=== PATIENT | male | born 1960 | race Caucasian/White ===

== ENCOUNTER 2017-08-24 23:52 | Emergency (ER) | payer BC ==
[2017-08-25] MEDS ORDERED: Albuterol/Ipratropium 3.0-0.5 MG/3 ML Neb Soln NEB ONE (00:14)
[2017-08-25] MEDS ORDERED: Sulfamethoxazole/Trimethoprim 800-160 MG Tab PO ONE (00:14)
--- NOTE | 2017-08-25 00:16 | EDM.PDOC ---
ED HPI GENERAL MEDICAL PROBLEM - General Stated Complaint: COUGH Time Seen by Provider: 08/25/17 00:00 Source of Information: Reports: Patient History Limitations: Reports: No Limitations - History of Present Illness INITIAL COMMENTS - FREE TEXT/NARRATIVE: 56 y.o.w.m came to the ed with his SO due to a dry cough, which started yesterday. No F/C/N/V or any other acute medical issues. Pt quit tobacco use 35 years ago. BP 153/102 Temp 36.8 RR 18 Pulse ox 95% on RA Onset Date: 08/24/17 Onset Time: 08:00 Duration: Hour(s):, Intermittent Location: Reports: Chest Quality: Reports: Ache, Burning Severity: Mild Improves with: Reports: Rest Worsens with: Reports: Movement Context: Reports: Other (nonproductive cough) Associated Symptoms: Reports: No Other Symptoms - Related Data Allergies Allergy/AdvReac Type Severity Reaction Status Date / Time No Known Allergies Allergy Verified 08/25/17 00:40 Home Meds: Home Meds Lovastatin 20 mg PO BEDTIME 07/11/13 [History] Sildenafil [Viagra] 1 tab PO DAILY PRN 07/11/13 [History] metFORMIN [Glucophage] 1,000 mg PO BIDM 07/11/13 [History] Aspirin [Adult Low Dose Aspirin EC] 81 mg PO DAILY 05/13/14 [History] Lisinopril/Hydrochlorothiazide [Lisinopril-Hctz 20-12.5 mg Tab] 1 tab PO DAILY 05/13/14 [History] Ciprofloxacin HCl [Cipro] 500 mg PO BID #20 tablet 08/25/17 [Rx] Codeine/guaiFENesin [guaiFENesin-Codeine Syrup] 5 ml PO BEDTIME #10 cup [Rx] Social & Family History - Tobacco Use Smoking Status *Q: Former Smoker Years of Tobacco use: 10 Used Tobacco, but Quit: Yes - Alcohol Use Days Per Week of Alcohol Use: 0 - Recreational Drug Use Recreational Drug Use: No ED ROS GENERAL - Review of Systems Review Of Systems: See Below Constitutional: Reports: No Symptoms HEENT: Reports: No Symptoms Respiratory: Reports: Cough Cardiovascular: Reports: No Symptoms Endocrine: Reports: No Symptoms GI/Abdominal: Reports: No Symptoms : Reports: No Symptoms Musculoskeletal: Reports: No Symptoms Skin: Reports: No Symptoms Neurological: Reports: No Symptoms Psychiatric: Reports: No Symptoms Hematologic/Lymphatic: Reports: No Symptoms Immunologic: Reports: No Symptoms ED EXAM, GENERAL - Physical Exam Exam: See Below Exam Limited By: No Limitations General Appearance: Alert, WD/WN, Mild Distress Eye Exam: Bilateral Eye: Normal Inspection Ears: Normal External Exam Ear Exam: Bilateral Ear: Auricle Normal Nose: Normal Inspection, Normal Mucosa Throat/Mouth: Normal Inspection, Normal Lips Head: Atraumatic, Normocephalic Neck: Normal Inspection, Supple, Non-Tender, Full Range of Motion Respiratory/Chest: No Respiratory Distress, Lungs Clear, Normal Breath Sounds, No Accessory Muscle Use, Chest Non-Tender Cardiovascular: Normal Peripheral Pulses, Regular Rate, Rhythm, No Edema, No Gallop, No JVD, No Murmur, No Rub GI/Abdominal: Normal Bowel Sounds, Soft, Non-Tender (Male) Exam: Deferred Rectal (Males) Exam: Deferred Back Exam: Normal Inspection, Full Range of Motion Extremities: Normal Inspection, Normal Range of Motion, Non-Tender, No Pedal Edema Neurological: Alert, Oriented, CN II-XII Intact, Normal Cognition, Normal Gait Psychiatric: Normal Affect, Normal Mood Skin Exam: Warm, Dry, Intact, Normal Color, No Rash Lymphatic: No Adenopathy Course - Vital Signs Text/Narrative:: 56 y.o.w.m came to the ed with his SO due to a dry cough, which started yesterday. No F/C/N/V or any other acute medical issues. Pt quit tobacco use 35 years ago. BP 153/102 Temp 36.8 RR 18 Pulse ox 95% on RA PE: Upper resp infection, non prod. cough Imaging: CXR NAD Labs: Not indicated Impression: Upper resp infection, non prod. cough Tx: Duoneb, Ciproand Codeine/Phenergen Reexam: Improved BP 152/82 on D/C Plan: D/C with instructions Last Recorded V/S: Last Vital Signs Temp 36.8 C 08/25/17 00:05 Pulse 106 H 08/25/17 00:05 Resp 20 08/25/17 00:05 BP 153/102 H 08/25/17 00:05 Pulse Ox 96 08/25/17 00:05 - Orders/Labs/Meds Orders: Active Orders 24 hr Category Date Time Status RT Aerosol Therapy [RC] ASDIRECTED Care 08/25/17 00:15 Active Chest 2V [CR] Stat Exams 08/25/17 00:14 Taken Meds: Medications Discontinued Medications Generic Name Dose Route Start Last Admin Trade Name Price PRN Reason Stop Dose Admin Albuterol/Ipratropium 3 ml 08/25/17 00:14 08/25/17 00:24 Duoneb 3.0-0.5 Mg/3 Ml NEB 08/25/17 00:15 3 ml ONETIME ONE Administration Ciprofloxacin 500 mg 08/25/17 00:18 08/25/17 00:24 Ciprofloxacin Hcl PO 08/25/17 00:19 500 mg ONETIME ONE Administration Guaifenesin/Codeine Phosphate 5 ml 08/25/17 00:41 08/25/17 00:53 Robitussin Ac PO 08/25/17 00:42 5 ml ONETIME ONE Administration Trimethoprim/Sulfamethoxazole 1 tab 08/25/17 00:14 Septra Ds PO 08/25/17 00:15 ONETIME ONE Departure - Departure Time of Disposition: 00:44 Disposition: Home, Self-Care 01 Condition: Good Clinical Impression: Upper respiratory infection, acute - Discharge Information Prescriptions: Ciprofloxacin HCl [Cipro] 500 mg PO BID #20 tablet Codeine/guaiFENesin [guaiFENesin-Codeine Syrup] 5 ml PO BEDTIME #10 cup Referrals: Ashish Blackburn MD [Primary Care Provider] - Forms: ED Department Discharge Additional Instructions: Please make sure your room is moist, please take the Abx and Codine as recommended, please f/u, come back if your symptoms get worse acutely - My Orders Last 24 Hours: My Active Orders 08/25/17 00:14 Chest 2V [CR] Stat 08/25/17 00:15 RT Aerosol Therapy [RC] ASDIRECTED - Assessment/Plan Last 24 Hours: My Active Orders 08/25/17 00:14 Chest 2V [CR] Stat 08/25/17 00:15 RT Aerosol Therapy [RC] ASDIRECTED
[2017-08-25] MEDS ORDERED: Ciprofloxacin 500 MG Tab PO ONE (00:18)
[2017-08-25] MEDS ORDERED: Codeine/guaiFENesin 100-10 MG/5 ML Syrup 5 ML Cup PO ONE (00:41)
[2017-08-25 01:05] VITALS: BP 151/82
--- NOTE | 2017-08-28 12:17 | CR ---
INDICATION: Cough. CHEST: PA and lateral views of the chest 08/25/2017 were compared with 2014 and 07/11/2013, revealing bilateral nipple shadows. The heart is normal in size and shape. The aorta is slightly tortuous, with some minimal calcification in the arch. Slightly heavy markings in the lower lung trujillo are essentially unchanged from the previous study with no definite active infiltrate or effusion. There are some flowing hyperostotic changes present in the spine, which could be on the basis of mild or early DISH and should be correlated clinically. IMPRESSION: No acute process. Stable chest. MTDD
== END 2017-08-25 01:05 | disposition home or self-care (01) ==
LOC: FB.ED 23:52
DX: J06.9 Acute upper respiratory infection, unspecified (principal); Z87.891 Personal history of nicotine dependence; Z79.899 Other long term (current) drug therapy; Z79.82 Long term (current) use of aspirin
CPT/HCPCS: 71020; 99283; A9270; J7620; 94640

== ENCOUNTER 2019-03-21 20:15 | Observation (INO) | payer BC ==
[2019-03-21] MEDS ORDERED: Sodium Chloride 0.9% 10 ML Syringe FLUSH PRN (20:45)
--- NOTE | 2019-03-21 20:45 | EDM.PDOC ---
ED HPI GENERAL MEDICAL PROBLEM - General Stated Complaint: ABD PAIN Time Seen by Provider: 03/21/19 20:25 Source of Information: Reports: Patient History Limitations: Reports: No Limitations - History of Present Illness INITIAL COMMENTS - FREE TEXT/NARRATIVE: 58-year-old male who states at approximately 3 PM begin to have pain in his left upper and mid abdomen that was a dull and aching pain and it gradually got worse. He was just sitting and doing some work at the time. He feels that the pain is worse with palpation and with movement and if he hunches over the pain is somewhat improved. He rates the pain as a 6/10. He appears to be quite uncomfortable. He's had no nausea or vomiting. He did have a normal bowel movement today. No diarrhea. He ate normally today. He is had no dysuria or hematuria. No fevers. But he has had sweats since he has been at home. The pain just simply won't go away. He has had no trauma to the area. He has no back pain. There is no radiation of the pain. Eating and drinking did not seem to make his pain worse. He has no leg pain or leg swelling. There are no other associated signs or symptoms. There are no other modifying factors. Onset: Today (3 PM) Duration: Getting Worse Location: Reports: Abdomen Quality: Reports: Ache, Dull Severity: Moderate Improves with: Reports: Other (Sitting hunched over) Worsens with: Reports: Other (Palpation), Movement Context: Reports: Other (As above) Associated Symptoms: Reports: No Other Symptoms Treatments EQUAL OPPORTUNITY DIRECTOR: Reports: Other (see below) (Nothing) ruq abdominal pain Pain Score (Numeric/FACES): 6 - Related Data Allergies Allergy/AdvReac Type Severity Reaction Status Date / Time No Known Allergies Allergy Verified 03/22/19 00:01 Home Meds: Home Meds Lovastatin 20 mg PO BEDTIME 07/11/13 [History] Sildenafil [Viagra] 1 tab PO DAILY PRN 07/11/13 [History] metFORMIN [Glucophage] 1,000 mg PO BIDM 07/11/13 [History] Aspirin [Adult Low Dose Aspirin EC] 81 mg PO DAILY 05/13/14 [History] Lisinopril/Hydrochlorothiazide [Lisinopril-Hctz 20-12.5 mg Tab] 1 tab PO DAILY 05/13/14 [History] Naproxen Sodium [Aleve] 220 mg PO ASDIRECTED PRN 03/22/19 [History] Past Medical History Cardiovascular History: Reports: High Cholesterol, Hypertension Respiratory History: Reports: Pneumonia, Recurrent Gastrointestinal History: Reports: PUD Musculoskeletal History: Reports: Fracture, Other (See Below) Other Musculoskeletal History: Pelvic fracture at age 14. Endocrine/Metabolic History: Reports: Diabetes, Type II Hematologic History: Reports: Anemia, Other (See Below) Other Hematologic History: Episode of anemia about 4 years ago, etiology undetermined. Resolved with short term Iron medication. 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 Denies: Chest Pain Endocrine: Reports: No Symptoms GI/Abdominal: Reports: Abdominal Pain. Denies: Diarrhea, Nausea, Vomiting : Reports: No Symptoms Musculoskeletal: Reports: No Symptoms Skin: Reports: Diaphoresis (Off-and-on) Neurological: Reports: No Symptoms Hematologic/Lymphatic: Reports: No Symptoms Immunologic: Reports: No Symptoms ED EXAM, GI/ABD - Physical Exam Exam: See Below Exam Limited By: No Limitations General Appearance: Alert, WD/WN, Moderate Distress Eyes: Bilateral: Normal Appearance, EOMI Ears: Normal External Exam Nose: Normal Inspection, Normal Mucosa, No Blood Throat/Mouth: Normal Voice, No Airway Compromise, Other (Dry mucous membranes) Neck: Normal Inspection, Supple, Non-Tender, Full Range of Motion Respiratory/Chest: No Respiratory Distress, Lungs Clear, Normal Breath Sounds, No Accessory Muscle Use, Chest Non-Tender Cardiovascular: Normal Peripheral Pulses, Regular Rate, Rhythm, No JVD GI/Abdominal Exam: Normal Bowel Sounds, Soft, No Mass, Distended (Seems somewhat distended.), Tender (In left upper quadrant and epigastrium.) Back Exam: Normal Inspection Extremities: Normal Inspection, Normal Range of Motion, Non-Tender, No Pedal Edema, Normal Capillary Refill Neurological: Alert, Oriented, CN II-XII Intact, Normal Cognition, No Motor/ Sensory Deficits Skin Exam: Warm, Dry, Intact, Normal Color, No Rash Course - Vital Signs Last Recorded V/S: Last Vital Signs Temp 36.4 C 03/21/19 20:15 Pulse 64 03/21/19 20:15 Resp 17 03/21/19 20:15 BP 165/94 H 03/21/19 20:15 Pulse Ox 98 03/21/19 20:15 - Orders/Labs/Meds Orders: Active Orders 24 hr Category Date Time Status Abdomen Pelvis w Cont [CT] Stat Exams 03/21/19 21:46 Taken Sodium Chloride 0.9% [Saline Flush] Med 03/21/19 20:45 Active 10 ml FLUSH ASDIRECTED PRN Peripheral IV Insertion Adult [OM.PC] Routine Oth 03/21/19 20:45 Ordered Medication Orders Cefoxitin Sodium (Mefoxin) 2 gm IVPUSH Q6H ERLIN Last Admin: 03/22/19 01:03 Dose: 2 gm Sodium Chloride (Normal Saline) 1,000 mls @ 125 mls/hr IV ASDIRECTED ELRIN Morphine Sulfate (Morphine) 2 mg IVPUSH Q2H PRN PRN Reason: Pain (severe 7-10) Ondansetron HCl (Zofran) 4 mg IV Q6H PRN PRN Reason: Nausea/Vomiting Sodium Chloride (Saline Flush) 10 ml FLUSH ASDIRECTED PRN PRN Reason: Keep Vein Open Last Admin: 03/21/19 21:40 Dose: 10 ml Labs: Laboratory Tests 03/21/19 03/21/19 03/21/19 Range/Units 21:05 21:05 21:05 WBC 13.5 H (4.5-12.0) X10-3/uL RBC 5.73 (4.30-5.75) x10(6)uL Hgb 16.5 (13.5-17.8) g/dL Hct 48.5 (30.0-51.3) % MCV 84.6 (80-96) fL MCH 28.8 (27.7-33.6) pg MCHC 34.0 (32.2-35.4) g/dL RDW 13.8 (11.5-15.5) % Plt Count 264 (125-369) X10(3)uL MPV 7.9 (7.4-10.4) fL Add Manual Diff Yes Neutrophils % (Manual) 76 (46-82) % Band Neutrophils % 5 (0-6) % Lymphocytes % (Manual) 12 L (13-37) % Monocytes % (Manual) 5 (4-12) % Eosinophils % (Manual) 2 (0-5) % Sodium 137 (135-145) mmol/L Potassium 4.4 (3.5-5.3) mmol/L Chloride 104 (100-110) mmol/L Carbon Dioxide 23 (21-32) mmol/L BUN 24 H (7-18) mg/dL Creatinine 1.1 (0.70-1.30) mg/dL Est Cr Clr Drug Dosing TNP Estimated GFR (MDRD) > 60 (>60) BUN/Creatinine Ratio 21.8 H (9-20) Glucose 161 H (80-116) mg/dL Calcium 9.9 (8.6-10.2) mg/dL Total Bilirubin 0.5 (0.1-1.3) mg/dL AST 26 H (5-25) IU/L ALT 64 H (12-36) U/L Alkaline Phosphatase 92 (56-112) IU/L C-Reactive Protein < 0.2 L (0.5-0.9) mg/dL Total Protein 7.6 (6.0-8.0) g/dL Albumin 4.1 (3.5-5.2) g/dL Globulin 3.5 g/dL Albumin/Globulin Ratio 1.2 Amylase 64 (25-115) U/L Urine Color (YELLOW) Urine Appearance (CLEAR) Urine pH (5.0-6.5) Ur Specific [place] (1.010-1.025) Urine Protein (NEGATIVE) mg/dL Urine Glucose (UA) (NORMAL) mg/dL Urine Ketones (NEGATIVE) mg/dL Urine Occult Blood (NEGATIVE) Urine Nitrite (NEGATIVE) Urine Bilirubin (NEGATIVE) Urine Urobilinogen (NEGATIVE) mg/dL Ur Leukocyte Esterase (NEGATIVE) Urine RBC (0-5) Urine WBC (0-5) Ur Squamous Epith Cells (NS,R,O) Urine Bacteria (NS) 07/19/19 Range/Units 23:17 WBC (4.5-12.0) X10-3/uL RBC (4.30-5.75) x10(6)uL Hgb (13.5-17.8) g/dL Hct (30.0-51.3) % MCV (80-96) fL MCH (27.7-33.6) pg MCHC (32.2-35.4) g/dL RDW (11.5-15.5) % Plt Count (125-369) X10(3)uL MPV (7.4-10.4) fL Add Manual Diff Neutrophils % (Manual) (46-82) % Band Neutrophils % (0-6) % Lymphocytes % (Manual) (13-37) % Monocytes % (Manual) (4-12) % Eosinophils % (Manual) (0-5) % Sodium (135-145) mmol/L Potassium (3.5-5.3) mmol/L Chloride (100-110) mmol/L Carbon Dioxide (21-32) mmol/L BUN (7-18) mg/dL Creatinine (0.70-1.30) mg/dL Est Cr Clr Drug Dosing Estimated GFR (MDRD) (>60) BUN/Creatinine Ratio (9-20) Glucose (80-116) mg/dL Calcium (8.6-10.2) mg/dL Total Bilirubin (0.1-1.3) mg/dL AST (5-25) IU/L ALT (12-36) U/L Alkaline Phosphatase (56-112) IU/L C-Reactive Protein (0.5-0.9) mg/dL Total Protein (6.0-8.0) g/dL Albumin (3.5-5.2) g/dL Globulin g/dL Albumin/Globulin Ratio Amylase (25-115) U/L Urine Color Yellow (YELLOW) Urine Appearance Clear (CLEAR) Urine pH 5.0 (5.0-6.5) Ur Specific [place] 1.020 (1.010-1.025) Urine Protein Negative (NEGATIVE) mg/dL Urine Glucose (UA) Normal (NORMAL) mg/dL Urine Ketones Negative (NEGATIVE) mg/dL Urine Occult Blood Negative (NEGATIVE) Urine Nitrite Negative (NEGATIVE) Urine Bilirubin Negative (NEGATIVE) Urine Urobilinogen Normal (NEGATIVE) mg/dL Ur Leukocyte Esterase Negative (NEGATIVE) Urine RBC 0-5 (0-5) Urine WBC 0-5 (0-5) Ur Squamous Epith Cells Occasional (NS,R,O) Urine Bacteria Rare H (NS) Meds: Medications Generic Name Dose Route Start Last Admin Trade Name Freq PRN Reason Stop Dose Admin Cefoxitin Sodium 2 gm 03/22/19 01:00 03/22/19 01:03 Mefoxin IVPUSH 2 gm Q6H ERLIN Administration Sodium Chloride 1,000 mls @ 125 mls/hr 03/22/19 01:00 Normal Saline IV ASDIRECTED ERLIN Morphine Sulfate 2 mg 03/22/19 00:57 Morphine IVPUSH Q2H PRN Pain (severe 7-10) Ondansetron HCl 4 mg 03/22/19 00:57 Zofran IV Q6H PRN Nausea/Vomiting Sodium Chloride 10 ml 03/21/19 20:45 03/21/19 21:40 Saline Flush FLUSH 10 ml ASDIRECTED PRN Administration Keep Vein Open Discontinued Medications Generic Name Dose Route Start Last Admin Trade Name Freq PRN Reason Stop Dose Admin Sodium Chloride 1,000 mls @ 999 mls/hr 03/21/19 20:46 03/21/19 21:43 Normal Saline IV 03/21/19 21:46 999 mls/hr .BOLUS ONE Administration Iopamidol 100 ml 03/21/19 23:17 03/21/19 23:33 Isovue-370 (76%) IV 03/21/19 23:18 100 ml . DIRECTED ONE Administration Morphine Sulfate 4 mg 03/21/19 20:46 03/21/19 21:47 Morphine IVPUSH 03/21/19 20:47 4 mg ONETIME ONE Administration Ondansetron HCl 4 mg 03/21/19 20:46 03/21/19 21:46 Zofran IVPUSH 03/21/19 20:47 4 mg ONETIME ONE Administration - Radiology Interpretation Free Text/Narrative:: CT scan of abdomen and pelvis showed cholelithiasis which was already known but no evidence of cholecystitis. There was a new 11.3 x 4.5 cm fluid and air filled structure arising from a loop of small bowel in the right abdomen that was felt to be a diverticulum. There is also a short segment of small bowel that had circumferential wall thickening it was adjacent to this and a 1.4 cm V- shaped hyperdensity at the junction between these 2 that could represent a foreign body. There was some stranding around the diverticulum concerning for early inflammation. - Re-Assessments/Exams Free Text/Narrative Re-Assessment/Exam: 03/21/19 22:30: Patient's pain is down to a 1-2/10. It is still present with palpation. He is, however, feeling much improved. He does have an elevation in his white blood cell count and because of the nature of his pain I will send him for CT of his abdomen and pelvis with IV contrast. 03/22/19 00:48: Patient's abdominal exam is really fairly not impressive at this point. He does have some pain with palpation over his right upper/mid abdomen. There is no rebound. Bowel sounds are present. The patient has remained vitally stable. The CT of the abdomen and pelvis is concerning for a small bowel diverticulum with inflammation/infection and an area that could represent a small foreign body. I discussed the patient's case with Dr. Negrete and the plan will be to admit the patient, keep patient nothing by mouth and place patient on Mefoxin and Dr. Negrete will see the patient in the morning and review the patient's CT scan of the time. I had discussed this with the patient and his prior to discussing the patient with Dr. Negrete and they would be agreeable to the plans for admission. Departure - Departure Time of Disposition: 01:00 Disposition: Refer to Observation Condition: Fair (Stable) Clinical Impression: Diverticulitis small intestine Qualifiers: Diverticulitis bleeding: without bleeding Diverticulitis complication: without perforation or abscess Qualified Code(s): K57.12 - Diverticulitis of small intestine without perforation or abscess without bleeding - Discharge Information - My Orders Last 24 Hours: My Active Orders 03/21/19 20:45 Sodium Chloride 0.9% [Saline Flush] 10 ml FLUSH ASDIRECTED PRN Peripheral IV Insertion Adult [OM.PC] Routine 03/21/19 21:46 Abdomen Pelvis w Cont [CT] Stat - Assessment/Plan Last 24 Hours: My Active Orders 03/21/19 20:45 Sodium Chloride 0.9% [Saline Flush] 10 ml FLUSH ASDIRECTED PRN Peripheral IV Insertion Adult [OM.PC] Routine 03/21/19 21:46 Abdomen Pelvis w Cont [CT] Stat
[2019-03-21] MEDS ORDERED: Morphine 4 MG/ML Syringe IVPUSH ONE (20:46)
[2019-03-21] MEDS ORDERED: Ondansetron 4 MG/2 ML SDV IVPUSH ONE (20:46)
[2019-03-21] MEDS ORDERED: Sodium Chloride 0.9% 1,000 ML IV ONE (20:46)
[2019-03-21] MEDS ORDERED: Iopamidol 755 Mg/ML 100 ML Bottle IV ONE (23:17)
[2019-03-22] MEDS ORDERED: Ondansetron 4 MG/2 ML SDV IV PRN (00:57)
[2019-03-22] MEDS ORDERED: Morphine 2 MG/ML Syringe IVPUSH PRN (00:57)
[2019-03-22] MEDS ORDERED: Sodium Chloride 0.9% 1,000 ML IV SCH (01:00)
[2019-03-22] MEDS: cefOXitin 2 GM Vial IVPUSH SCH ×3 (01:03→13:36)
[2019-03-22 08:17] VITALS: PULSE 89
--- NOTE | 2019-03-22 10:00 | PCM.HP ---
H&P History of Present Illness - General Date of Service: 03/22/19 Admit Problem/Dx: Admission Diagnosis/Problem Admission Diagnosis/Problem Diverticulitis of gastrointestinal tract - History of Present Illness Initial Comments - Free Text/Narative: 58 yo wm who presented to the ED last pm with a complaint of L sided abd pain. This started at 1500 hrs and would not go away. He denied any fever, chills, constipation. Subsequent angel revealed that he had slightly elevated wbc, crp was negative. On CT scan there was a quesion of a diverticulum with some inflammation. There was a question of a retained food particle as well in the area. He was admitted and place on antibiotics. This morning he is feeling better. ruq abdominal pain Pain Score (Numeric/FACES): 6 - Related Data Allergies/Adverse Reactions: Allergies Allergy/AdvReac Type Severity Reaction Status Date / Time No Known Allergies Allergy Verified 03/22/19 00:01 Home Medications: Home Meds Lovastatin 20 mg PO BEDTIME 07/11/13 [History] Sildenafil [Viagra] 1 tab PO DAILY PRN 07/11/13 [History] metFORMIN [Glucophage] 1,000 mg PO BIDM 07/11/13 [History] Aspirin [Adult Low Dose Aspirin EC] 81 mg PO DAILY 05/13/14 [History] Lisinopril/Hydrochlorothiazide [Lisinopril-Hctz 20-12.5 mg Tab] 1 tab PO DAILY 05/13/14 [History] Naproxen Sodium [Aleve] 220 mg PO ASDIRECTED PRN 03/22/19 [History] Past Medical History HEENT History: Reports: Other (See Below) Other HEENT History: Wears glasses. Cardiovascular History: Reports: High Cholesterol, Hypertension Other Cardiovascular History: Takes cardiac meds. Respiratory History: Reports: Pneumonia, Recurrent, Other (See Below) Other Respiratory History: Possible sleep apnea. Gastrointestinal History: Reports: PUD Musculoskeletal History: Reports: Fracture, Other (See Below) Other Musculoskeletal History: Pelvic fracture at age 14. Endocrine/Metabolic History: Reports: Diabetes, Type II Other Endocrine/Metabolic History: Takes Metformin. Hematologic History: Reports: Anemia, Other (See Below) Other Hematologic History: Episode of anemia about 4 years ago, etiology undetermined. Resolved with short term iron medication. 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 No: Mild Distress, Moderate Distress Lungs: Clear to Auscultation, Normal Respiratory Effort Cardiovascular: Regular Rate, Regular Rhythm GI/Abdominal Exam: Normal Bowel Sounds, Soft, Non-Tender, No Distention, No Mass - Patient Data Lab Results Last 24 hrs: Laboratory Results - last 24 hr 03/21/19 03/21/19 03/21/19 Range/Units 21:05 21:05 21:05 WBC 13.5 H (4.5-12.0) X10-3/uL RBC 5.73 (4.30-5.75) x10(6)uL Hgb 16.5 (13.5-17.8) g/dL Hct 48.5 (30.0-51.3) % MCV 84.6 (80-96) fL MCH 28.8 (27.7-33.6) pg MCHC 34.0 (32.2-35.4) g/dL RDW 13.8 (11.5-15.5) % Plt Count 264 (125-369) X10(3)uL MPV 7.9 (7.4-10.4) fL Add Manual Diff Yes Neutrophils % (Manual) 76 (46-82) % Band Neutrophils % 5 (0-6) % Lymphocytes % (Manual) 12 L (13-37) % Monocytes % (Manual) 5 (4-12) % Eosinophils % (Manual) 2 (0-5) % Sodium 137 (135-145) mmol/L Potassium 4.4 (3.5-5.3) mmol/L Chloride 104 (100-110) mmol/L Carbon Dioxide 23 (21-32) mmol/L BUN 24 H (7-18) mg/dL Creatinine 1.1 (0.70-1.30) mg/dL Est Cr Clr Drug Dosing TNP Estimated GFR (MDRD) > 60 (>60) BUN/Creatinine Ratio 21.8 H (9-20) Glucose 161 H (80-116) mg/dL Calcium 9.9 (8.6-10.2) mg/dL Total Bilirubin 0.5 (0.1-1.3) mg/dL AST 26 H (5-25) IU/L ALT 64 H (12-36) U/L Alkaline Phosphatase 92 (56-112) IU/L C-Reactive Protein < 0.2 L (0.5-0.9) mg/dL Total Protein 7.6 (6.0-8.0) g/dL Albumin 4.1 (3.5-5.2) g/dL Globulin 3.5 g/dL Albumin/Globulin Ratio 1.2 Amylase 64 (25-115) U/L Urine Color (YELLOW) Urine Appearance (CLEAR) Urine pH (5.0-6.5) Ur Specific [place] (1.010-1.025) Urine Protein (NEGATIVE) mg/dL Urine Glucose (UA) (NORMAL) mg/dL Urine Ketones (NEGATIVE) mg/dL Urine Occult Blood (NEGATIVE) Urine Nitrite (NEGATIVE) Urine Bilirubin (NEGATIVE) Urine Urobilinogen (NEGATIVE) mg/dL Ur Leukocyte Esterase (NEGATIVE) Urine RBC (0-5) Urine WBC (0-5) Ur Squamous Epith Cells (NS,R,O) Urine Bacteria (NS) 03/21/19 Range/Units 23:17 WBC (4.5-12.0) X10-3/uL RBC (4.30-5.75) x10(6)uL Hgb (13.5-17.8) g/dL Hct (30.0-51.3) % MCV (80-96) fL MCH (27.7-33.6) pg MCHC (32.2-35.4) g/dL RDW (11.5-15.5) % Plt Count (125-369) X10(3)uL MPV (7.4-10.4) fL Add Manual Diff Neutrophils % (Manual) (46-82) % Band Neutrophils % (0-6) % Lymphocytes % (Manual) (13-37) % Monocytes % (Manual) (4-12) % Eosinophils % (Manual) (0-5) % Sodium (135-145) mmol/L Potassium (3.5-5.3) mmol/L Chloride (100-110) mmol/L Carbon Dioxide (21-32) mmol/L BUN (7-18) mg/dL Creatinine (0.70-1.30) mg/dL Est Cr Clr Drug Dosing Estimated GFR (MDRD) (>60) BUN/Creatinine Ratio (9-20) Glucose (80-116) mg/dL Calcium (8.6-10.2) mg/dL Total Bilirubin (0.1-1.3) mg/dL AST (5-25) IU/L ALT (12-36) U/L Alkaline Phosphatase (56-112) IU/L C-Reactive Protein (0.5-0.9) mg/dL Total Protein (6.0-8.0) g/dL Albumin (3.5-5.2) g/dL Globulin g/dL Albumin/Globulin Ratio Amylase (25-115) U/L Urine Color Yellow (YELLOW) Urine Appearance Clear (CLEAR) Urine pH 5.0 (5.0-6.5) Ur Specific [place] 1.020 (1.010-1.025) Urine Protein Negative (NEGATIVE) mg/dL Urine Glucose (UA) Normal (NORMAL) mg/dL Urine Ketones Negative (NEGATIVE) mg/dL Urine Occult Blood Negative (NEGATIVE) Urine Nitrite Negative (NEGATIVE) Urine Bilirubin Negative (NEGATIVE) Urine Urobilinogen Normal (NEGATIVE) mg/dL Ur Leukocyte Esterase Negative (NEGATIVE) Urine RBC 0-5 (0-5) Urine WBC 0-5 (0-5) Ur Squamous Epith Cells Occasional (NS,R,O) Urine Bacteria Rare H (NS) Result Diagrams: 03/21/19 21:05 03/21/19 21:05 Problem List Initiated/Reviewed/Updated: Yes Orders Last 24hrs: Active Orders 24 hr Category Date Time Status Admission Status [Patient Status] [ADT] Routine ADT 03/22/19 00:53 Active Communication Order [RC] DAILY Care 03/22/19 02:58 Active Height and Weight [RC] UPON Care 03/22/19 00:57 Active Oxygen Therapy [RC] PRN Care 03/22/19 00:57 Active VTE/DVT Education [RC] Per Unit Routine Care 03/22/19 00:57 Active Vital Signs [RC] 00,04,08,12,16,20 Care 03/22/19 00:57 Active Regular Diet [DIET] Diet 03/22/19 Lunch Ordered Abdomen Pelvis w Cont [CT] Stat Exams 03/21/19 21:46 Taken CBC WITH AUTO DIFF [HEME] Routine Lab 03/22/19 09:54 Ordered Morphine Med 03/22/19 00:57 Active 2 mg IVPUSH Q2H PRN Ondansetron [Zofran] Med 03/22/19 00:57 Active 4 mg IV Q6H PRN Sodium Chloride 0.9% [Normal Saline] 1,000 ml Med 03/22/19 01:00 Active IV ASDIRECTED Sodium Chloride 0.9% [Saline Flush] Med 03/21/19 20:45 Active 10 ml FLUSH ASDIRECTED PRN cefOXitin [Mefoxin] Med 03/22/19 01:00 Active 2 gm IVPUSH Q6H Convert IV to Saline Lock [OM.PC] Routine Oth 03/22/19 09:54 Ordered Peripheral IV Insertion Adult [OM.PC] Routine Oth 03/21/19 20:45 Ordered Resuscitation Status Routine Resus Stat 03/22/19 00:57 Ordered Medication Orders Cefoxitin Sodium (Mefoxin) 2 gm IVPUSH Q6H ERLIN Last Admin: 03/22/19 07:35 Dose: 2 gm Admin: 03/22/19 01:03 Dose: 2 gm Sodium Chloride (Normal Saline) 1,000 mls @ 125 mls/hr IV ASDIRECTED ERLIN Last Admin: 03/22/19 02:20 Dose: 125 mls/hr Morphine Sulfate (Morphine) 2 mg IVPUSH Q2H PRN PRN Reason: Pain (severe 7-10) Last Admin: 03/22/19 02:21 Dose: 2 mg Ondansetron HCl (Zofran) 4 mg IV Q6H PRN PRN Reason: Nausea/Vomiting Sodium Chloride (Saline Flush) 10 ml FLUSH ASDIRECTED PRN PRN Reason: Keep Vein Open Last Admin: 03/21/19 21:40 Dose: 10 ml Assessment/Plan Comment:: This am is unremarkable exam. will continue to treat as a diverticulosis.
[2019-03-22 11:29] VITALS: BP 126/81
== END 2019-03-22 13:15 | disposition home or self-care (01) ==
LOC: FB.ED 20:15 → FB.MS 03-22 00:53
PROVIDERS: ADMIT Emergency Medicine; ATTEND Surgery
DX: K57.10 Diverticulosis of small intestine without perforation or abscess without bleeding (principal); K80.20 Calculus of gallbladder without cholecystitis without obstruction; I10 Essential (primary) hypertension; E11.9 Type 2 diabetes mellitus without complications; E78.00 Pure hypercholesterolemia, unspecified; Z87.891 Personal history of nicotine dependence; Z79.82 Long term (current) use of aspirin; Z79.84 Long term (current) use of oral hypoglycemic drugs; Z79.899 Other long term (current) drug therapy
CPT/HCPCS: 36415; 74177; 80053; 81001; 82150; 85025; 86140; 96361; 96374; 96375; 99284; J0694; J2270; J2405; J7030; Q9967; 96376; G0378

== ENCOUNTER 2021-11-10 12:58 | Emergency (ER) | payer OTHER ==
[2021-11-10 13:12] VITALS: BP 134/70; PULSE 97
[2021-11-10 13:38] LABS: ESTIMATED GFR 48 (>60)
[2021-11-10] MEDS ORDERED: 50% Dextrose in Water 50 ML Syringe IVPUSH PRN (14:07)
[2021-11-10] MEDS ORDERED: Insulin Lispro 100 Unit/ML 3 ML KwikPen SUBCUT STA (14:07)
[2021-11-10] MEDS ORDERED: Glucagon,Human Recombinant 1 MG Vial IM PRN (14:07)
[2021-11-10] MEDS ORDERED: Sodium Chloride 0.9% 1,000 ML IV SCH (14:15)
[2021-11-10 15:35] LABS: ESTIMATED GFR 56 (>60)
[2021-11-12 09:15] LABS: IRON BIND.CAP.(TIBC) 333 ug/dL (250-450); IRON SATURATION 5 % (15-55); IRON, SERUM 16 ug/dL (38-169); UIBC 317 ug/dL (111-343)
== END 2021-11-10 16:10 | disposition home or self-care (01) ==
LOC: FB.ED 12:58
DX: D64.9 Anemia, unspecified (principal); E86.0 Dehydration; E78.00 Pure hypercholesterolemia, unspecified; I10 Essential (primary) hypertension; E11.9 Type 2 diabetes mellitus without complications; Z79.899 Other long term (current) drug therapy; Z79.82 Long term (current) use of aspirin; Z79.84 Long term (current) use of oral hypoglycemic drugs
CPT/HCPCS: 36415; 71045; 80048; 80053; 82728; 83540; 83550; 83880; 84484; 85025; 85379; 99285; J1815; J7030; 99282